=== PATIENT | female | born 1990 | race Caucasian/White ===

== ENCOUNTER 2016-07-19 16:34 | Outpatient (CLI) | payer OTHER | END 2016-07-19 17:10 | disposition home or self-care (01) | LOC: MW.OBCHECK 16:34 → MW.OB 16:40 → MW.OBCHECK 16:47 → UNDOADMOB 16:48 → MW.OB 16:48 → MW.OBCHECK 17:10 → UNDODISOB 17:10 | PROVIDERS: ATTEND Obstetrics & Gynecology | DX: O24.419 Gestational diabetes mellitus in pregnancy, unspecified control (principal); Z3A.34 34 weeks gestation of pregnancy | CPT/HCPCS: 59025 ==

== ENCOUNTER 2016-07-26 12:59 | Outpatient (CLI) | payer OTHER | END 2016-07-26 13:36 | disposition home or self-care (01) | LOC: MW.OBCHECK 12:59 → MW.OB 13:01 → MW.OBCHECK 13:36 | PROVIDERS: ATTEND Obstetrics & Gynecology | DX: Z34.83 Encounter for supervision of other normal pregnancy, third trimester (principal) | CPT/HCPCS: 59025 ==

== ENCOUNTER 2016-08-02 13:05 | Outpatient (CLI) | payer OTHER | END 2016-08-02 13:47 | disposition home or self-care (01) | LOC: MW.OBCHECK 13:05 → MW.OB 13:15 → MW.OBCHECK 13:47 | PROVIDERS: ATTEND Emergency Medicine | DX: Z36 Encounter for antenatal screening of mother (principal) | CPT/HCPCS: 59025 ==

== ENCOUNTER → 2016-08-02 | Outpatient (CLI) | payer OTHER | LOC: MW.CHOBGYN 15:41 | PROVIDERS: ATTEND Obstetrics & Gynecology | DX: Z34.90 Encounter for supervision of normal pregnancy, unspecified, unspecified trimester (principal) | CPT/HCPCS: 87081 ==

== ENCOUNTER 2016-08-16 13:00 | Outpatient (CLI) | payer OTHER | END 2016-08-16 13:50 | disposition home or self-care (01) | LOC: MW.OBCHECK 13:00 | PROVIDERS: ATTEND Obstetrics & Gynecology | DX: Z36 Encounter for antenatal screening of mother (principal) | CPT/HCPCS: 59025 ==

== ENCOUNTER 2016-08-18 05:11 | Inpatient (IN) | payer OTHER ==
[~2016-08-18 05:11] MED LIST: Citric Acid/Sodium Citrate Solution 30 ML Cup PO SCH; Sodium Chloride 0.9% 10 ML Syringe FLUSH PRN; Sodium Chloride 0.9% 2.5 ML Syringe FLUSH PRN; ceFAZolin 2 GM in Premix Bag 1 BAG IV ONE
[2016-08-18] MEDS: Lactated Ringers 1,000 ML IV SCH ×3 (05:45→07:42)
[2016-08-18] MEDS ORDERED: Ondansetron 4 MG/2 ML SDV ONE (07:20)
[2016-08-18] MEDS ORDERED: Morphine PF 10 MG/10 ML SDV ONE (07:20)
[2016-08-18] MEDS ORDERED: Oxytocin 10 Units/1 ML SDV ONE ×2 (07:20→08:33)
[2016-08-18] MEDS ORDERED: Octyl 2-Cyanoacrylate 1 Tube ONE (07:21)
[2016-08-18] MEDS ORDERED: ePHEDrine 50 MG/ML SDV ONE (07:21)
--- NOTE | 2016-08-18 07:26 | PCM.PREANE ---
Preanesthetic Assessment - Anesthesia/Transfusion/Family Hx Anesthesia History: Prior Anesthesia Without Reaction Family History of Anesthesia Reaction: No Transfusion History: No Prior Transfusion(s) Intubation History: Unknown - Review of Systems General: No Symptoms Pulmonary: Shortness of Breath (w/) Cardiovascular: No Symptoms Gastrointestinal: Other (GERD) Other: Reports: Depression - Physical Assessment Height: 5 ft 2.4 in Weight: 185 lb ASA Class: 2 Mental Status: Alert & Oriented x3 Dentition: Reports: Normal Dentition Thyro-Mental Finger Breadths: 3 Mouth Opening Finger Breadths: 3 ROM/Head Extension: Full Lungs: Clear to auscultation, Normal respiratory effort Cardiovascular: Regular Rate, Regular Rhythm, No Murmurs - Lab Values: Laboratory Last Values WBC 11.21 K/uL (4.0-11.0) H 08/18/16 05:29 RBC 4.21 M/uL (4.30-5.90) L 08/18/16 05:29 Hgb 12.6 g/dL (12.0-16.0) 08/18/16 05:29 Hct 37.6 % (36.0-46.0) 08/18/16 05:29 MCV 89.3 fL (80.0-98.0) 08/18/16 05:29 MCH 29.9 pg (27.0-32.0) 08/18/16 05:29 MCHC 33.5 g/dL (31.0-37.0) 08/18/16 05:29 RDW Std Deviation 42.9 fl (28.0-62.0) 08/18/16 05:29 RDW Coeff of Asya 13 % (11.0-15.0) 08/18/16 05:29 Plt Count 248 K/uL (150-400) 08/18/16 05:29 MPV 11.90 fL (7.40-12.00) 08/18/16 05:29 Nucleated RBC % 0.0 /100WBC 08/18/16 05:29 Nucleated RBCs # 0 K/uL 08/18/16 05:29 Blood Type A NEGATIVE 08/18/16 05:29 Antibody Screen NEGATIVE 08/18/16 05:29 - Allergies Allergies/Adverse Reactions: Allergies Allergy/AdvReac Type Severity Reaction Status Date / Time No Known Allergies Allergy Verified 03/10/15 22:16 - Blood Blood Available: No - Anesthesia Plan Free Text/Narrative:: spinal; to be in room for delivery; family members were present in room for interview and exam. Plan accepted. Pre-Op Medication Ordered: Antacids - Acknowledgements Anesthesia Type Planned: Spinal Pt an Appropriate Candidate for the Planned Anesthesia: Yes Alternatives and Risks of Anesthesia Discussed w Pt/Guardian: Yes Pt/Guardian Understands and Agrees with Anesthesia Plan: Yes PreAnesthesia Questionnaire HEENT History: Reports: Impaired vision, Other (see below) Other HEENT History: wears contacts/glasses Cardiovascular History: Reports: SOB on exertion, Other (see below) Other Cardiovascular History: heart palpatations with shortness of breath this . wore OpenTableter monitor. 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: Psychiatric History: Reports: Depression Endocrine/Metabolic History: Reports: Diabetes, gestational Hematologic History: Reports: Anemia - Past Surgical History Head Surgeries/Procedures: Reports: None Female Surgical History: Reports: section - SUBSTANCE USE Smoking Status *Q: Never Smoker Tobacco Use Within Last Twelve Months: Cigarettes Recreational Drug Use History: No - HOME MEDS Home Medications: Home Meds Venlafaxine HCl [Venlafaxine ER] 75 mg PO DAILY 03/10/15 [History] PNV95/Ferrous Fumarate/FA [ Vitamins Tablet] 1 tab PO DAILY 08/16/16 [ History] - CURRENT (IN HOUSE) MEDS Current Meds: Current Medications Citric Acid/Sodium Citrate (Bicitra Solution) 30 ml PO .ONCE STEVE Lactated Ringer's (Ringers, Lactated) 1,000 mls @ 500 mls/hr IV .BOLUS STEVE Last Admin: 08/18/16 06:08 Dose: 500 mls/hr Sodium Chloride (Saline Flush) 10 ml FLUSH ASDIRECTED PRN PRN Reason: Keep Vein Open Sodium Chloride (Saline Flush) 2.5 ml FLUSH ASDIRECTED PRN PRN Reason: Keep Vein Open Discontinued Medications Cefazolin Sodium/Dextrose 2 gm (/ Premix) 50 mls @ 100 mls/hr IV ONETIME ONE Stop: 08/17/16 15:31
--- NOTE | 2016-08-18 08:40 | PCM.LDHP ---
L&D History of Present Illness - General Date of Service: 08/18/16 Admit Problem/Dx: Patient Status Order with Admit Dx/Problem 08/17/16 15:02 Patient Status [ADT] Routine Admission Diagnosis/Problem Admission Diagnosis/Problem - planned Source of Information: Patient History Limitations: Reports: No limitations - History of Present Illness Improves with: Reports: None Worsens with: Reports: None Associated Symptoms: Reports: N - Related Data Allergies/Adverse Reactions: Allergies Allergy/AdvReac Type Severity Reaction Status Date / Time No Known Allergies Allergy Verified 03/10/15 22:16 Home Medications: Home Meds Venlafaxine HCl [Venlafaxine ER] 75 mg PO DAILY 03/10/15 [History] PNV95/Ferrous Fumarate/FA [ Vitamins Tablet] 1 tab PO DAILY 08/16/16 [ History] Past Medical History HEENT History: Reports: Impaired vision, Other (see below) Other HEENT History: wears contacts/glasses Cardiovascular History: Reports: SOB on exertion, Other (see below) Other Cardiovascular History: heart palpatations with shortness of breath this . wore halter monitor. 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: Psychiatric History: Reports: Depression Endocrine/Metabolic History: Reports: Diabetes, gestational Hematologic History: Reports: Anemia - Past Surgical History Head Surgeries/Procedures: Reports: None Female Surgical History: Reports: section Social & Family History - Family History HEENT: Reports: Impaired vision Cardiac: Reports: Hypertension - Tobacco Use Smoking Status *Q: Never Smoker Years of Tobacco use: 8 Packs/Tins Daily: 1 - Recreational Drug Use Recreational Drug Use: No H&P Review of Systems - Review of Systems: Review Of Systems: See Below General: Reports: no symptoms HEENT: Reports: no symptoms Pulmonary: Reports: No Symptoms Cardiovascular: Reports: no symptoms Gastrointestinal: Reports: No symptoms Genitourinary: Reports: no symptoms Musculoskeletal: Reports: no symptoms Skin: Reports: no symptoms Psychiatric: Reports: no symptoms Neurological: Reports: No Symptoms Hematologic/Lymphatic: Reports: no symptoms Immunologic: Reports: no symptoms L&D Exam - Exam Exam: See Below - Vital Signs Weight: 83.915 kg - OB Specific Fundal Height in cm: 38 Contraction Intensity: Mild movement: active heart tones: present Presentation: Vertex - Patient Data Lab Results last 24 hrs: Laboratory Results - last 24 hr 08/18/16 08/18/16 Range/Units 05:29 05:29 WBC 11.21 H (4.0-11.0) K/uL RBC 4.21 L (4.30-5.90) M/uL Hgb 12.6 (12.0-16.0) g/dL Hct 37.6 (36.0-46.0) % MCV 89.3 (80.0-98.0) fL MCH 29.9 (27.0-32.0) pg MCHC 33.5 (31.0-37.0) g/dL RDW Std Deviation 42.9 (28.0-62.0) fl RDW Coeff of Asya 13 (11.0-15.0) % Plt Count 248 (150-400) K/uL MPV 11.90 (7.40-12.00) fL Nucleated RBC % 0.0 /100WBC Nucleated RBCs # 0 K/uL Blood Type A NEGATIVE Antibody Screen NEGATIVE Result Diagrams: 08/18/16 05:29 Problem List Initiated/Reviewed/Updated: Yes Orders Last 24hrs: Active Orders 24 hr Category Date Time Status Patient Status [ADT] Routine ADT 08/17/16 15:02 Active Procedure Site Prep Instruct [RC] ASDIRECTED Care 08/17/16 15:02 Active Up ad Celine [RC] ASDIRECTED Care 08/17/16 15:02 Active Vital Signs [RC] PER UNIT ROUTINE Care 08/17/16 15:02 Active Nothing Per Oral Diet [DIET] Diet 08/17/16 Dinner Active Citric Acid/Sodium Citrate [Bicitra Solution] Med 08/17/16 15:15 Active 30 ml PO .ONCE Lactated Ringers [Ringers, Lactated] 1,000 ml Med 08/17/16 15:15 Active IV .BOLUS Sodium Chloride 0.9% [Saline Flush] Med 08/17/16 15:02 Active 10 ml FLUSH ASDIRECTED PRN Sodium Chloride 0.9% [Saline Flush] Med 08/17/16 15:02 Active 2.5 ml FLUSH ASDIRECTED PRN Peripheral IV Insertion Adult [OM.PC] Routine Oth 08/17/16 15:02 Ordered Resuscitation Status Routine Resus Stat 08/17/16 15:02 Ordered Medication Orders Citric Acid/Sodium Citrate (Bicitra Solution) 30 ml PO .ONCE STEVE Last Admin: 08/18/16 07:44 Dose: 30 ml Lactated Ringer's (Ringers, Lactated) 1,000 mls @ 500 mls/hr IV .BOLUS STEVE Last Admin: 08/18/16 07:42 Dose: 500 mls/hr Infusion: 08/18/16 07:42 Dose: 500 mls/hr Admin: 08/18/16 06:08 Dose: 500 mls/hr Infusion: 08/18/16 06:08 Dose: 500 mls/hr Admin: 08/18/16 05:45 Dose: 500 mls/hr Sodium Chloride (Saline Flush) 10 ml FLUSH ASDIRECTED PRN PRN Reason: Keep Vein Open Sodium Chloride (Saline Flush) 2.5 ml FLUSH ASDIRECTED PRN PRN Reason: Keep Vein Open
[2016-08-18] MEDS ORDERED: Bisacodyl 10 MG Supp RECTAL PRN (08:42)
[2016-08-18] MEDS ORDERED: Acetaminophen/oxyCODONE 325-5 MG Tab PO PRN ×3 (08:42→08:55)
[2016-08-18] MEDS ORDERED: Ondansetron 4 MG/2 ML SDV IV PRN (08:42)
[2016-08-18] MEDS ORDERED: diphenhydrAMINE 50 MG/ML SDV IVPUSH PRN ×2 (08:42→08:54)
[2016-08-18] MEDS ORDERED: Lanolin 100% Cream 7 GM Tube TOP PRN (08:42)
--- NOTE | 2016-08-18 08:42 | PCM.OPNOTE ---
- General Post-Op/Procedure Note Date of Surgery/Procedure: 08/18/16 Pre Op Diagnosis: Term repeat C/section Post-Op Diagnosis: Same Anesthesia Technique: Spinal Primary Surgeon: Paul Schwab Finisher Accordion: Odessa Esteban EBL in mLs: 700 Complications: None Condition: Good
[2016-08-18] MEDS ORDERED: Lactated Ringers 1,000 ML IV SCH (08:45)
[2016-08-18] MEDS ORDERED: Naloxone 0.4 MG/ML Syringe IVPUSH PRN (08:54)
[2016-08-18] MEDS ORDERED: fentaNYL 100 MCG/2 ML SDV IVPUSH PRN (08:55)
--- NOTE | 2016-08-18 08:56 | PCM.POSTAN ---
POST ANESTHESIA ASSESSMENT - MENTAL STATUS Mental Status: alert, oriented - RESPIRATORY Respiratory Status: respiratory rate WNL, airway patent, O2 saturation stable - CARDIOVASCULAR CV Status: pulse rate WNL, blood pressure stable - GASTROINTESTINAL GI Status: no symptoms - PAIN Pain Score: 0 - POST OP HYDRATION Hydration Status: adequate & stable
[2016-08-18] MEDS: Ketorolac 30 MG/ML SDV IVPUSH SCH ×3 (09:14→23:19)
[2016-08-18] MEDS: Nalbuphine 10 MG/1 ML Vial IVPUSH PRN ×2 (09:16→15:29)
[2016-08-18] MEDS: Docusate Sodium 100 MG Cap PO SCH ×2 (11:36→23:19)
--- NOTE | 2016-08-18 13:10 | OR ---
SURGEON: Paul Schwab MD DATE OF PROCEDURE: PREOPERATIVE DIAGNOSES: Intrauterine , 38 plus 3; gestational diabetes; previous section. POSTOPERATIVE DIAGNOSES: Intrauterine , 38 plus 3; gestational diabetes; previous section. OPERATION PERFORMED: Repeat low transverse section. TOBACCO DRYING MACHINE OPERATOR: DARIA Handley. ANESTHESIA: Spinal by Eugenia Alexander and Dr. Farris. ESTIMATED BLOOD LOSS: 700 mL. COMPLICATION: None. FINDING: Male fetus. score reported to be 8 and 9. The weight is not available. INDICATION FOR SURGERY: This patient is 26, she had a previous section. She is gestational diabetic. She is counseled about trial of labor, but she does not meet the criteria, so a decision was made to elective repeat section. PROCEDURE IN DETAIL: The patient was brought to the OR, properly identified, and after adequate level of spinal anesthesia with a Garcia catheter in the bladder, time-out was taken. The patient properly identified and then low transverse Pfannenstiel skin incision was done through the old scar. The Jesus Manuel's fascia and rectus fascia were opened in direction of the incision. The 2 recti muscles and peritoneal cavity was entered. Bladder flap was raised in the usual manner pushing the bladder away from the lower uterine segment. Low transverse uterine incision was done, extended manually and fetus was delivered, and handed to the nurse resuscitator, who was present at the time of the delivery. The fetus cried immediately, and score reported to be 8 and 9. The weight is not available. The placenta delivered spontaneous, complete, and intact and repair of the lower uterine segment was done with 2-0 Vicryl continuous interlocking in 2 layers. Reperitonealization done with 2-0 Vicryl continuous. The peritoneal cavity was evacuated completely from all blood and blood clot and closed with 3- 0 Vicryl continuous. The rectus fascia was closed with #1 PDS double strand continuous. The Jesus Manuel's fascia with 3-0 Vicryl continuous. The skin was closed in a subcuticular fashion and then using 5-0 nylon and Dermabond. Instrument and sponge count was correct. The patient tolerated the procedure well, went to recovery room in stable general condition. TAWANDA / DIGNA /[id number]
--- NOTE | 2016-08-18 19:23 | PCM48HPAN ---
Post Anesthesia Note - EVALUATION WITHIN 48HRS OF ANESTHETIC Vital Signs in Normal Range: Yes Patient Participated in Evaluation: Yes Respiratory Function Stable: Yes Airway Patent: Yes Cardiovascular Function Stable: Yes Hydration Status Stable: Yes Pain Control Satisfactory: Yes Nausea and Vomiting Control Satisfactory: Yes Mental Status Recovered: Yes
[2016-08-19] MEDS: Ketorolac 30 MG/ML SDV IVPUSH SCH ×2 (05:04→10:55)
--- NOTE | 2016-08-19 08:44 | PCM.PNPP ---
- General Info Date of Service: 08/19/16 Functional Status: Reports: pain controlled - Review of Systems General: Reports: No Symptoms HEENT: Reports: no symptoms Pulmonary: Reports: no symptoms Cardiovascular: Reports: No Symptoms Gastrointestinal: Reports: No symptoms Genitourinary: Reports: no symptoms Musculoskeletal: Reports: no symptoms Skin: Reports: no symptoms Neurological: Reports: No Symptoms Psychiatric: Reports: no symptoms - General Info Date of Service: 08/19/16 - Patient Data Vital Signs - most recent: Last Vital Signs Temp 35.9 C 08/19/16 04:00 Pulse 82 08/19/16 06:00 Resp 14 08/19/16 06:00 BP 117/74 08/19/16 04:00 Pulse Ox 96 08/19/16 06:00 Weight - most recent: 83.915 kg I&O - last 24 hours: Intake & Output 08/18/16 08/19/16 08/19/16 22:59 06:59 14:59 Output Total 400 Balance -400 Lab Results - last 24 hrs: Laboratory Results - last 24 hr 08/19/16 Range/Units 04:35 Hgb 10.9 L (12.0-16.0) g/dL Hct 32.6 L (36.0-46.0) % Med Orders - Current: Current Medications Bisacodyl (Dulcolax) 10 mg RECTAL .ONCE PRN PRN Reason: Constipation Citric Acid/Sodium Citrate (Bicitra Solution) 30 ml PO .ONCE STEVE Last Admin: 08/18/16 07:44 Dose: 30 ml Diphenhydramine HCl (Benadryl) 25 mg IVPUSH Q6H PRN PRN Reason: Itching or Nausea Diphenhydramine HCl (Benadryl) 25 mg IVPUSH Q4H PRN PRN Reason: Itching Stop: 08/19/16 08:54 Last Admin: 08/18/16 12:21 Dose: 25 mg Docusate Sodium (Colace) 100 mg PO BID STEVE Last Admin: 08/18/16 23:19 Dose: 100 mg Emollient Ointment (Lansinoh Hpa) 0 gm TOP ASDIRECTED PRN PRN Reason: Sore Nipples Fentanyl (Sublimaze) 25 - 50 mcg IVPUSH Q30M PRN PRN Reason: Pain Lactated Ringer's (Ringers, Lactated) 1,000 mls @ 500 mls/hr IV .BOLUS [facility] Last Infusion: 08/18/16 11:37 Dose: Infused Lactated Ringer's (Ringers, Lactated) 1,000 mls @ 125 mls/hr IV ASDIRECTED [facility] Last Admin: 08/18/16 12:25 Dose: 125 mls/hr Ibuprofen (Motrin) 800 mg PO Q8H PRN PRN Reason: mild pain or fever Ketorolac Tromethamine (Toradol) 30 mg IVPUSH Q6H [facility] Stop: 08/19/16 08:46 Last Admin: 08/19/16 05:04 Dose: 30 mg Nalbuphine HCl (Nubain) 5 mg IVPUSH Q3H PRN PRN Reason: Pruritis Stop: 08/19/16 08:55 Last Admin: 08/18/16 15:29 Dose: 5 mg Naloxone HCl (Narcan) 0.1 mg IVPUSH ONETIME PRN PRN Reason: Other Stop: 08/19/16 08:55 Ondansetron HCl (Zofran) 4 mg IV Q4H PRN PRN Reason: Nausea/Vomiting Oxycodone/Acetaminophen (Percocet 325-5 Mg) 1 tab PO Q4H PRN PRN Reason: Pain (moderate 4-6) Oxycodone/Acetaminophen (Percocet 325-5 Mg) 2 tab PO Q4H PRN PRN Reason: Pain (moderate 4-6) Oxycodone/Acetaminophen (Percocet 325-5 Mg) 1 - 2 tab PO Q6H PRN PRN Reason: Pain Stop: 08/20/16 14:00 Sodium Chloride (Saline Flush) 10 ml FLUSH ASDIRECTED PRN PRN Reason: Keep Vein Open Sodium Chloride (Saline Flush) 2.5 ml FLUSH ASDIRECTED PRN PRN Reason: Keep Vein Open Discontinued Medications Ephedrine Sulfate (Ephedrine Sulfate) Confirm Administered Dose 50 mg .ROUTE .STK-MED ONE Stop: 08/18/16 07:22 Cefazolin Sodium/Dextrose 2 gm (/ Premix) 50 mls @ 100 mls/hr IV ONETIME ONE Stop: 08/17/16 15:31 Last Admin: 08/18/16 11:36 Dose: Not Given Morphine Sulfate (Duramorph Pf) Confirm Administered Dose 10 mg .ROUTE .STK-MED ONE Stop: 08/18/16 07:21 Octyl Cyanoacrylate (Dermabond Advance) Confirm Administered Dose 2 applic .ROUTE .STK-MED ONE Stop: 08/18/16 07:22 Ondansetron HCl (Zofran) Confirm Administered Dose 4 mg .ROUTE .STK-MED ONE Stop: 08/18/16 07:21 Oxytocin (Pitocin) Confirm Administered Dose 20 unit .ROUTE .STK-MED ONE Stop: 08/18/16 07:21 Oxytocin (Pitocin) Confirm Administered Dose 20 unit .ROUTE .STK-MED ONE Stop: 08/18/16 08:34 - Infant Interaction Infant Disposition, : in Room with Family Infant Interaction: Holding Infant Infant Feeding: Attempted ; Nursed Fair/Poor Support Person: Significant Other - Recovery Exam Fundal Tone: Firm Fundal Level: At Umbilicus Fundal Placement: Midline Lochia Amount: None, Small Lochia Color: Rubra/Red Perineum Description: Intact, Minimal Bruising/Swelling Episiotomy/Laceration: None Bladder Status: Voiding Urinary Elimination: Voided - Exam General: alert, oriented HEENT: Pupils equal Neck: supple Lungs: Clear to auscultation, Normal respiratory effort Cardiovascular: Regular Rate, Regular Rhythm Abdomen: bowel sounds present, soft, no tenderness, no distension Extremities: no edema Skin: warm, dry, intact Wound/Incisions: healing well Neurological: no new focal deficit Psy/Mental Status: alert, normal affect, normal mood - Problem List Review Problem List Initiated/Reviewed/Updated: Yes - My Orders Last 24 Hours: My Active Orders 08/18/16 08:42 Patient Status [ADT] Routine Ambulate [RC] PER UNIT ROUTINE Communication Order [RC] PER UNIT ROUTINE Communication Order [RC] PER UNIT ROUTINE Communication Order [RC] Per Unit Routine May Shower [RC] ASDIRECTED RT Incentive Spirometry [RC] Q2HWA Vital Signs [RC] PER UNIT ROUTINE Acetaminophen/oxyCODONE [Percocet 325-5 MG] 1 tab PO Q4H PRN Acetaminophen/oxyCODONE [Percocet 325-5 MG] 2 tab PO Q4H PRN Bisacodyl [Dulcolax] 10 mg RECTAL .ONCE PRN Ibuprofen [Motrin] 800 mg PO Q8H PRN Lanolin [Lansinoh HPA] See Dose Instructions TOP ASDIRECTED PRN Ondansetron [Zofran] 4 mg IV Q4H PRN diphenhydrAMINE [Benadryl] 25 mg IVPUSH Q6H PRN Assess Lochia [WOMSER] Per Unit Routine Assess Uterine Involution [WOMSER] Per Unit Routine Breast Pump [WOMSER] Per Unit Routine Peripheral IV Discontinue [OM.PC] Routine Sequential Compression Device [OM.PC] Per Unit Routine 08/18/16 08:43 Antiembolic Devices [RC] PER UNIT ROUTINE 08/18/16 08:45 Ketorolac [Toradol] 30 mg IVPUSH Q6H Lactated Ringers [Ringers, Lactated] 1,000 ml IV ASDIRECTED 08/18/16 09:00 Docusate Sodium [Colace] 100 mg PO BID 08/18/16 Dinner Regular Diet [DIET] - Assessment Assessment:: Status post section doing well we will send the patient home in a.m.
[2016-08-19] MEDS: Docusate Sodium 100 MG Cap PO SCH ×2 (09:57→20:28)
[2016-08-19] MEDS: Ibuprofen 800 MG Tab PO PRN (19:39)
[2016-08-20] MEDS: Ibuprofen 800 MG Tab PO PRN (04:30)
--- NOTE | 2016-08-20 06:01 | PCM.PNPP ---
- General Info Date of Service: 08/20/16 Functional Status: Reports: pain controlled - Review of Systems General: Reports: No Symptoms HEENT: Reports: no symptoms Pulmonary: Reports: no symptoms Cardiovascular: Reports: No Symptoms Gastrointestinal: Reports: No symptoms Genitourinary: Reports: no symptoms Musculoskeletal: Reports: no symptoms Skin: Reports: no symptoms Neurological: Reports: No Symptoms Psychiatric: Reports: no symptoms - General Info Date of Service: 08/20/16 - Patient Data Vital Signs - most recent: Last Vital Signs Temp 36.9 C 08/20/16 04:43 Pulse 74 08/20/16 04:43 Resp 15 08/20/16 04:43 BP 136/87 08/20/16 04:43 Pulse Ox 96 08/20/16 04:43 Weight - most recent: 83.915 kg Med Orders - Current: Current Medications Bisacodyl (Dulcolax) 10 mg RECTAL .ONCE PRN PRN Reason: Constipation Citric Acid/Sodium Citrate (Bicitra Solution) 30 ml PO .ONCE [facility] Last Admin: 08/18/16 07:44 Dose: 30 ml Diphenhydramine HCl (Benadryl) 25 mg IVPUSH Q6H PRN PRN Reason: Itching or Nausea Docusate Sodium (Colace) 100 mg PO BID [facility] Last Admin: 08/19/16 20:28 Dose: 100 mg Emollient Ointment (Lansinoh Hpa) 0 gm TOP ASDIRECTED PRN PRN Reason: Sore Nipples Fentanyl (Sublimaze) 25 - 50 mcg IVPUSH Q30M PRN PRN Reason: Pain Lactated Ringer's (Ringers, Lactated) 1,000 mls @ 500 mls/hr IV .BOLUS [facility] Last Infusion: 08/18/16 11:37 Dose: Infused Lactated Ringer's (Ringers, Lactated) 1,000 mls @ 125 mls/hr IV ASDIRECTED [facility] Last Admin: 08/18/16 12:25 Dose: 125 mls/hr Ibuprofen (Motrin) 800 mg PO Q8H PRN PRN Reason: mild pain or fever Last Admin: 08/20/16 04:30 Dose: 800 mg Ondansetron HCl (Zofran) 4 mg IV Q4H PRN PRN Reason: Nausea/Vomiting Oxycodone/Acetaminophen (Percocet 325-5 Mg) 1 tab PO Q4H PRN PRN Reason: Pain (moderate 4-6) Oxycodone/Acetaminophen (Percocet 325-5 Mg) 2 tab PO Q4H PRN PRN Reason: Pain (moderate 4-6) Oxycodone/Acetaminophen (Percocet 325-5 Mg) 1 - 2 tab PO Q6H PRN PRN Reason: Pain Stop: 08/20/16 14:00 Sodium Chloride (Saline Flush) 10 ml FLUSH ASDIRECTED PRN PRN Reason: Keep Vein Open Sodium Chloride (Saline Flush) 2.5 ml FLUSH ASDIRECTED PRN PRN Reason: Keep Vein Open Discontinued Medications Diphenhydramine HCl (Benadryl) 25 mg IVPUSH Q4H PRN PRN Reason: Itching Stop: 08/19/16 08:54 Last Admin: 08/18/16 12:21 Dose: 25 mg Ephedrine Sulfate (Ephedrine Sulfate) Confirm Administered Dose 50 mg .ROUTE .STK-MED ONE Stop: 08/18/16 07:22 Cefazolin Sodium/Dextrose 2 gm (/ Premix) 50 mls @ 100 mls/hr IV ONETIME ONE Stop: 08/17/16 15:31 Last Admin: 08/18/16 11:36 Dose: Not Given Ketorolac Tromethamine (Toradol) 30 mg IVPUSH Q6H STEVE Stop: 08/19/16 08:46 Last Admin: 08/19/16 10:55 Dose: 30 mg Morphine Sulfate (Duramorph Pf) Confirm Administered Dose 10 mg .ROUTE .STK-MED ONE Stop: 08/18/16 07:21 Nalbuphine HCl (Nubain) 5 mg IVPUSH Q3H PRN PRN Reason: Pruritis Stop: 08/19/16 08:55 Last Admin: 08/18/16 15:29 Dose: 5 mg Naloxone HCl (Narcan) 0.1 mg IVPUSH ONETIME PRN PRN Reason: Other Stop: 08/19/16 08:55 Octyl Cyanoacrylate (Dermabond Advance) Confirm Administered Dose 2 applic .ROUTE .STK-MED ONE Stop: 08/18/16 07:22 Ondansetron HCl (Zofran) Confirm Administered Dose 4 mg .ROUTE .STK-MED ONE Stop: 08/18/16 07:21 Oxytocin (Pitocin) Confirm Administered Dose 20 unit .ROUTE .STK-MED ONE Stop: 08/18/16 07:21 Oxytocin (Pitocin) Confirm Administered Dose 20 unit .ROUTE .STK-MED ONE Stop: 08/18/16 08:34 - Infant Interaction Disposition, : in Room with Family Infant Interaction: Holding Infant Feeding: Attempted ; Nursed Fair/Poor Support Person: Significant Other - Recovery Exam Fundal Tone: Firm Fundal Level: At Umbilicus Fundal Placement: Midline Lochia Amount: None, Small Lochia Color: Rubra/Red Perineum Description: Intact, Minimal Bruising/Swelling Episiotomy/Laceration: None Bladder Status: Voiding Urinary Elimination: Voided - Exam General: alert, oriented HEENT: Pupils equal Neck: supple Lungs: Clear to auscultation, Normal respiratory effort Cardiovascular: Regular Rate, Regular Rhythm Abdomen: bowel sounds present, soft, no tenderness, no distension Extremities: no edema Skin: warm, dry, intact Wound/Incisions: healing well Neurological: no new focal deficit Psy/Mental Status: alert, normal affect, normal mood - Problem List Review Problem List Initiated/Reviewed/Updated: Yes - Assessment Assessment:: Status post section doing well we will send the patient home in a.m.
[2016-08-20] MEDS: Docusate Sodium 100 MG Cap PO SCH (08:03)
[2016-08-20 08:21] VITALS: BP 134/88
--- NOTE | 2016-09-12 10:19 | PCM.DCSUM1 ---
Discharge Summary - Discharge Data Discharge Date: 08/21/16 Discharge Disposition: Home, Self-Care 01 Condition: Good - Discharge Plan Home Medications: Home Meds Venlafaxine HCl [Venlafaxine ER] 75 mg PO DAILY 03/10/15 [History] PNV95/Ferrous Fumarate/FA [ Vitamins Tablet] 1 tab PO DAILY 08/16/16 [ History] Patient Handouts: Care After Delivery Referrals: [facility] [Outside] Paul Schwab MD [Physician] - (1 week- August 31 @ 8:30am w/ Dr. Schwab week- September 28 @ 10:45am w/ Dr. Schwab Please Check-in to Appointments 10-15 min. Early ) - General Info Date of Service: 08/21/16 Functional Status: Reports: pain controlled - Review of Systems General: Reports: No Symptoms HEENT: Reports: no symptoms Pulmonary: Reports: no symptoms Cardiovascular: Reports: No Symptoms Gastrointestinal: Reports: No symptoms Genitourinary: Reports: no symptoms Musculoskeletal: Reports: no symptoms Skin: Reports: no symptoms Neurological: Reports: No Symptoms Psychiatric: Reports: no symptoms - Patient Data Vitals - Most Recent: Last Vital Signs Temp 37.0 C 08/20/16 08:20 Pulse 67 08/20/16 08:20 Resp 17 08/20/16 08:20 BP 134/88 08/20/16 08:20 Pulse Ox 96 08/20/16 08:20 Weight - Most Recent: 83.915 kg Med Orders - Current: Current Medications Discontinued Medications Bisacodyl (Dulcolax) 10 mg RECTAL .ONCE PRN PRN Reason: Constipation Citric Acid/Sodium Citrate (Bicitra Solution) 30 ml PO .ONCE STEVE Last Admin: 08/18/16 07:44 Dose: 30 ml Diphenhydramine HCl (Benadryl) 25 mg IVPUSH Q6H PRN PRN Reason: Itching or Nausea Diphenhydramine HCl (Benadryl) 25 mg IVPUSH Q4H PRN PRN Reason: Itching Stop: 08/19/16 08:54 Last Admin: 08/18/16 12:21 Dose: 25 mg Docusate Sodium (Colace) 100 mg PO BID STEVE Last Admin: 08/20/16 08:03 Dose: 100 mg Emollient Ointment (Lansinoh Hpa) 0 gm TOP ASDIRECTED PRN PRN Reason: Sore Nipples Ephedrine Sulfate (Ephedrine Sulfate) Confirm Administered Dose 50 mg .ROUTE .STK-MED ONE Stop: 08/18/16 07:22 Fentanyl (Sublimaze) 25 - 50 mcg IVPUSH Q30M PRN PRN Reason: Pain Lactated Ringer's (Ringers, Lactated) 1,000 mls @ 500 mls/hr IV .BOLUS [facility] Last Infusion: 08/18/16 11:37 Dose: Infused Cefazolin Sodium/Dextrose 2 gm (/ Premix) 50 mls @ 100 mls/hr IV ONETIME ONE Stop: 08/17/16 15:31 Last Admin: 08/18/16 11:36 Dose: Not Given Lactated Ringer's (Ringers, Lactated) 1,000 mls @ 125 mls/hr IV ASDIRECTED [facility] Last Admin: 08/18/16 12:25 Dose: 125 mls/hr Ibuprofen (Motrin) 800 mg PO Q8H PRN PRN Reason: mild pain or fever Last Admin: 08/20/16 04:30 Dose: 800 mg Ketorolac Tromethamine (Toradol) 30 mg IVPUSH Q6H [facility] Stop: 08/19/16 08:46 Last Admin: 08/19/16 10:55 Dose: 30 mg Morphine Sulfate (Duramorph Pf) Confirm Administered Dose 10 mg .ROUTE .STK-MED ONE Stop: 08/18/16 07:21 Nalbuphine HCl (Nubain) 5 mg IVPUSH Q3H PRN PRN Reason: Pruritis Stop: 08/19/16 08:55 Last Admin: 08/18/16 15:29 Dose: 5 mg Naloxone HCl (Narcan) 0.1 mg IVPUSH ONETIME PRN PRN Reason: Other Stop: 08/19/16 08:55 Octyl Cyanoacrylate (Dermabond Advance) Confirm Administered Dose 2 applic .ROUTE .STK-MED ONE Stop: 08/18/16 07:22 Ondansetron HCl (Zofran) Confirm Administered Dose 4 mg .ROUTE .STK-MED ONE Stop: 08/18/16 07:21 Ondansetron HCl (Zofran) 4 mg IV Q4H PRN PRN Reason: Nausea/Vomiting Oxycodone/Acetaminophen (Percocet 325-5 Mg) 1 tab PO Q4H PRN PRN Reason: Pain (moderate 4-6) Oxycodone/Acetaminophen (Percocet 325-5 Mg) 2 tab PO Q4H PRN PRN Reason: Pain (moderate 4-6) Last Admin: 08/20/16 08:03 Dose: 2 tab Oxycodone/Acetaminophen (Percocet 325-5 Mg) 1 - 2 tab PO Q6H PRN PRN Reason: Pain Stop: 08/20/16 14:00 Oxytocin (Pitocin) Confirm Administered Dose 20 unit .ROUTE .STK-MED ONE Stop: 08/18/16 07:21 Oxytocin (Pitocin) Confirm Administered Dose 20 unit .ROUTE .STK-MED ONE Stop: 08/18/16 08:34 Sodium Chloride (Saline Flush) 10 ml FLUSH ASDIRECTED PRN PRN Reason: Keep Vein Open Sodium Chloride (Saline Flush) 2.5 ml FLUSH ASDIRECTED PRN PRN Reason: Keep Vein Open - Exam General: Reports: alert, oriented HEENT: Reports: Pupils equal, Pupils reactive, EOMI, Mucous membr. moist/pink Neck: Reports: supple Lungs: Reports: Clear to auscultation, Normal respiratory effort Cardiovascular: Reports: Regular Rate, Regular Rhythm Abdomen: Reports: bowel sounds present, soft, no tenderness, no distension (Female) Exam: Normal external exam, Normal speculum exam, Normal bimanual exam Rectal (Female) Exam: Normal Exam, Normal rectal tone Back Exam: Reports: normal inspection, full range of motion Extremities: Reports: no edema, normal pulses Skin: Reports: warm, dry, intact Wound/Incisions: Reports: healing well Neurological: Reports: no new focal deficit Psy/Mental Status: Reports: alert, normal affect, normal mood *Q Meaningful Use (DIS) - VTE *Q VTE Criteria *Q: - Stroke *Q Stroke Criteria *Q: - AMI *Q AMI Criteria *Q:
== END 2016-08-20 14:00 | disposition home or self-care (01) | DRG 766 ==
LOC: MW.OB 05:11
PROVIDERS: ADMIT Obstetrics & Gynecology; ATTEND Obstetrics & Gynecology
PROC: 10D00Z1 Extraction of Products of Conception, Low, Open Approach (ICD-10-PCS; principal; 2016-08-18)
DX: O34.211 Maternal care for low transverse scar from previous cesarean delivery (principal); N85.8 Other specified noninflammatory disorders of uterus; Z3A.38 38 weeks gestation of pregnancy; Z37.0 Single live birth; O24.429 Gestational diabetes mellitus in childbirth, unspecified control; F32.9 Major depressive disorder, single episode, unspecified
CPT/HCPCS: 01961; 36415; 59025; 85014; 85018; 85027; 86850; 86900; 86901; A9270-GY; J1200; J1885; J2270; J2300; J2405; J2590; J7120